=== PATIENT | female | born 2000 | race Two or more races ===

== ENCOUNTER → 2020-06-29 | Emergency (ER) | payer MEDICAID ==
[~2020-06-29] VITALS: Ht 154.9 cm; Wt 83.9 kg
--- NOTE | 2020-06-29 13:28 | Emergency Room Report ---
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 Patient History Past Medical History: see triage record Now: No Reviewed Nursing Documentation: PMH: Agreed; PSxH: Agreed Nursing Documentation-PMH Past Medical History: No Stated History Review of Systems All Other Systems: negative except mentioned in HPI Physical Exam Vital Signs Date Time Temp Pulse Resp B/P (MAP) Pulse Ox O2 Delivery O2 Flow Rate FiO2 06/29/20 13:11 98.4 68 18 114/70 (85) 98 Room Air General Appearance: well appearing, no apparent distress Head: normocephalic, atraumatic ENT: hearing grossly normal, normal voice Neck: full range of motion, supple Respiratory: no respiratory distress, speaking full sentences Genitourinary: other - I[employer] 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 Aury Albright RN, vaginal exam notable for tear posterior aspect of vaginal canal, no CMT no adnexal tenderness no discharge no lesions noted Neurologic: alert, normal gait Psychiatric: mood/affect normal Skin: no rash Medical Decision Making Diagnostic Impression: Primary Impression: Vaginal abrasion Qualified Codes: S30.814A - Abrasion of vagina and vulva, initial encounter ER Course 19-year-old female presents with a vaginal tear no evidence of STDs, patient given reassurance, patient has had a long-term relationship with 1 partner tried a new position yesterday resulted in tearing canal Anticipatory guidance given strict return precautions discussed follow-up with PCP supportive care Last Vital Signs Date Time Temp Pulse Resp B/P (MAP) Pulse Ox O2 Delivery O2 Flow Rate FiO2 06/29/20 13:11 98.4 68 18 114/70 (85) 98 Room Air Disposition: HOME, SELF-CARE Condition: Stable Referrals: [facility] Patient Instructions: Vaginal Laceration Additional Instructions: The patient was provided with discharge instructions, notified to follow-up with a primary care doctor and or specialist in the next 24-48 hours, and to return to the ED if they have worsening of their symptoms. Please note that this report is being documented using [employer] technology. This can lead to erroneous entry secondary to incorrect interpretation by the dictating instrument. Aaron Hubbard MD Jun 29, 2020 13:27
--- NOTE | 2020-06-29 13:41 | NUR ---
PELVIC EXAM DONE BY DR GUERRIER
[2020-06-29 13:42] VITALS: BP 114/70
[2020-06-29 13:44] VITALS: BP 110/60
--- NOTE | 2020-06-29 13:46 | NUR ---
DISCHARGED HOME WITH INSTRUCTION TO FOLLOPW UP WITH PMD
== END | disposition home or self-care (01) ==
LOC: EMR 13:25
DX: S30.814A Abrasion of vagina and vulva, initial encounter (principal); X58.XXXA Exposure to other specified factors, initial encounter; Y93.89 Activity, other specified; Y92.9 Unspecified place or not applicable
CPT/HCPCS: 81025; Z7502; 99283